=== PATIENT | female | born 1955 | race Caucasian/White ===

== ENCOUNTER → 2024-05-15 | Outpatient (CLI) | payer MEDICARE, BC, SELFPAY ==
[2024-05-15 09:20] LABS: Basophils % (Auto) 1 % (0-2.5); Eosinophils # (Auto) 0.1 Thou/mm3 (0.0-0.5); Eosinophils % (Auto) 2 % (0-10); Hematocrit 41.3 % (36.0-46.0); Hemoglobin 13.9 g/dL (12.0-16.0); Immature Granulocytes % (Auto) 0 % (0-0); Immature Granulocytes Auto 0.01 Thou/mm3 (0.00-0.00); Lymphocytes % (Auto) 30 % (10-50); Mean Corpuscular HGB Conc 33.7 g/dl (31.0-37.0); Mean Corpuscular Volume 101 fL (80-100); Monocytes # (Auto) 0.3 Thou/mm3 (0.0-0.8); Monocytes % (Auto) 8 % (0-12); Neutrophils # (Auto) 1.9 Thou/mm3 (1.8-7.7); Neutrophils % (Auto) 58 % (37-80); Nucleated Red Blood Cell % 0 /100 WBC (0); Platelet Count 122 Thou/mm3 (140-440); RDW Standard Deviation 49.1 fL (36.4-46.3); Red Blood Count 4.09 Miln/mm3 (4.00-5.20); White Blood Count 3.3 Thou/mm3 (3.6-11.0)
[2024-05-15 09:29] LABS: Alanine Aminotransferase 10 U/L (10-49); Albumin, Serum 4.6 gm/dL (3.4-4.8); Albumin/Globulin Ratio 1.8 (1.2-2.2); Alkaline Phosphatase 124 U/L (46-116); Anion Gap 9 (7-16); Aspartate Amino Transferase 29 U/L (0-34); BUN/Creatinine Ratio 24 Ratio (12-20); Bilirubin,Total 0.7 mg/dL (0.3-1.2); Blood Urea Nitrogen 19 mg/dL (9-23); Carbon Dioxide 25.5 mMol/L (20.0-31.0); Chloride 106 mMol/L (98-107); Creatinine (Component) 0.8 mg/dL (0.6-1.3); Globulin 2.5 gm/dL (2.3-3.5); Glucose 97 mg/dL (74-106); Osmolality,Calculated 281 (275-295); Potassium 4.7 mMol/L (3.4-5.1); Sodium 140 mMol/L (136-145); Total Protein 7.1 gm/dL (5.7-8.2); eGFR > 60 See Note
[2024-05-18 06:44] LABS: CA 19-9 Antigen* 5 U/mL (<34)
== END | disposition home or self-care (01) ==
LOC: SCTO 08:08
PROVIDERS: PCP Internal Medicine; Referring Provider Internal Medicine Hematology & Oncology; Visit Provider Internal Medicine Hematology & Oncology
DX: D69.6 Thrombocytopenia, unspecified (principal)
CPT/HCPCS: 36415; 80053; 85025; 86301

== ENCOUNTER → 2024-05-16 | Outpatient (CLI) | payer MEDICARE, BC, SELFPAY ==
--- NOTE | 2024-05-16 12:00 | XR_ITS ---
Examination: CT abdomen, without intravenous contrast. CT pelvis, without intravenous contrast. CT abdomen, with intravenous contrast. CT pelvis, with intravenous contrast. 2-D sagittal coronal reconstructions. Date and time of exam:May 16, 2024 1309 hours Comparison November 09, 2023 INDICATIONS: Diagnosis thrombocytopenia, generalized abdominal pain beginning 2 years ago, subcentimeter abdominal lymphadenopathy on CT abdomen and pelvis November 09, 2023 CTDI: vol (mGy) 24.9 DLP: (mGycm) 956 Technique: Multiple 3.0 axial images of the abdomen and pelvis without intravenous contrast, 3.0 mm slice thickness. Multiple 3.0 postcontrast images abdomen and pelvis also obtained, post intravenous injection 60 cc [id number] 2-D sagittal and coronal reconstructions. Low dose protocols were performed. One or more of the following dose reduction techniques were used; automated exposure control, adjustment of the mA and/or KV according to patient size, use of iterative reconstruction technique. Findings: Multiple liver cysts No gallstones Spleen not enlarged No pancreatic mass No hydronephrosis renal or ureteral calculi Stable subcentimeter periaortic pericaval lymph nodes No bowel obstruction No pericecal inflammatory change No diverticulitis No pelvic mass Advanced degenerative disc disease L5-S1 IMPRESSION: Stable subcentimeter periaortic pericaval lymph nodes
== END | disposition home or self-care (01) ==
PROVIDERS: Referring Provider Internal Medicine Hematology & Oncology; Visit Provider Internal Medicine Hematology & Oncology
DX: D69.6 Thrombocytopenia, unspecified (principal)
CPT/HCPCS: 74178; A4649; Q9967

== ENCOUNTER 2024-05-25 09:59 | Outpatient (RCR) | payer MEDICARE, BC, SELFPAY | END 2024-05-26 23:59 | disposition home or self-care (01) | LOC: SCTC 09:59 | PROVIDERS: PCP Internal Medicine; Referring Provider Internal Medicine; Visit Provider Nurse Practitioner Family | DX: D69.6 Thrombocytopenia, unspecified (principal) | CPT/HCPCS: 99212; G0463 ==

== ENCOUNTER 2024-06-27 10:00 | Outpatient (RCR) | payer MEDICARE, BC, SELFPAY | END 2024-07-24 23:59 | disposition home or self-care (01) | LOC: SCTC 10:00 | PROVIDERS: PCP Internal Medicine; Referring Provider Internal Medicine; Visit Provider Nurse Practitioner Family | DX: D69.6 Thrombocytopenia, unspecified (principal); K51.90 Ulcerative colitis, unspecified, without complications; Z90.410 Acquired total absence of pancreas | CPT/HCPCS: 99424; 99425 ==

== ENCOUNTER 2024-08-01 10:10 | Outpatient (RCR) | payer MEDICARE, BC, SELFPAY | END 2024-08-23 23:59 | disposition home or self-care (01) | LOC: SCTC 10:10 | PROVIDERS: PCP Internal Medicine; Referring Provider Internal Medicine; Visit Provider Nurse Practitioner Family | DX: D69.6 Thrombocytopenia, unspecified (principal) | CPT/HCPCS: 99211; G0463 ==

== ENCOUNTER → 2024-09-08 | Outpatient (CLI) | payer MEDICARE, BC, SELFPAY ==
[2024-09-08 11:09] LABS: Basophils % (Auto) 1 % (0-2.5); Eosinophils # (Auto) 0.1 Thou/mm3 (0.0-0.5); Eosinophils % (Auto) 1 % (0-10); Hematocrit 39.9 % (36.0-46.0); Hemoglobin 13.3 g/dL (12.0-16.0); Immature Granulocytes % (Auto) 0 % (0-0); Immature Granulocytes Auto 0.01 Thou/mm3 (0.00-0.00); Lymphocytes # (Auto) 0.9 Thou/mm3 (1.0-4.8); Lymphocytes % (Auto) 19 % (10-50); Mean Corpuscular HGB Conc 33.3 g/dl (31.0-37.0); Mean Corpuscular Volume 102 fL (80-100); Monocytes # (Auto) 0.3 Thou/mm3 (0.0-0.8); Monocytes % (Auto) 7 % (0-12); Neutrophils # (Auto) 3.4 Thou/mm3 (1.8-7.7); Neutrophils % (Auto) 72 % (37-80); Nucleated Red Blood Cell % 0 /100 WBC (0); Platelet Count 132 Thou/mm3 (140-440); RDW Standard Deviation 48.8 fL (36.4-46.3); Red Blood Count 3.91 Miln/mm3 (4.00-5.20); White Blood Count 4.8 Thou/mm3 (3.6-11.0)
[2024-09-08 11:35] LABS: Alanine Aminotransferase < 7 U/L (10-49); Albumin, Serum 4.3 gm/dL (3.4-4.8); Albumin/Globulin Ratio 1.8 (1.2-2.2); Alkaline Phosphatase 126 U/L (46-116); Anion Gap 11 (7-16); Aspartate Amino Transferase 20 U/L (0-34); BUN/Creatinine Ratio 21 Ratio (12-20); Bilirubin,Total 0.7 mg/dL (0.3-1.2); Blood Urea Nitrogen 19 mg/dL (9-23); Carbon Dioxide 25.4 mMol/L (20.0-31.0); Chloride 108 mMol/L (98-107); Creatinine (Component) 0.9 mg/dL (0.6-1.3); Globulin 2.4 gm/dL (2.3-3.5); Glucose 99 mg/dL (74-106); Osmolality,Calculated 289 (275-295); Potassium 3.9 mMol/L (3.4-5.1); Sodium 144 mMol/L (136-145); Total Protein 6.7 gm/dL (5.7-8.2); eGFR > 60 See Note
== END | disposition home or self-care (01) ==
LOC: SCTO 09:57
PROVIDERS: PCP Internal Medicine; Referring Provider Nurse Practitioner Family; Visit Provider Nurse Practitioner Family
DX: D69.6 Thrombocytopenia, unspecified (principal)
CPT/HCPCS: 36415; 80053; 85025

== ENCOUNTER 2024-09-14 11:31 | Outpatient (RCR) | payer MEDICARE, BC, SELFPAY ==
--- NOTE | 2024-09-20 01:15 | CTCFLWUP_ITS ---
Patient: RIVAS GREEN : 1955 Page 7 of 7 FOLLOW UP NOTE DATE OF SERVICE: 09/14/2024 NAME: RIVAS GREEN ACCOUNT: [id number] : 1955 AGE: 69 INTERVAL HISTORY: Subjective: Chief Complaint Routine follow-up for asymptomatic mild thrombocytopenia, monitoring of pancreatic and liver growths, experiencing Charley horses, breathing issues due to deviated septum, hot flashes with sulfur smell, past due for mammogram History of Present Illness Peter Solis, a patient with a history of Crohn's disease, pancreatectomy, and multiple medical conditions, presents for follow-up of mild thrombocytopenia and ongoing monitoring of various health issues. The patient reports stable mild thrombocytopenia, likely attributed to 6- mercaptopurine, with platelets currently at 132. She is actively trying to increase her platelet count through dietary modifications. A small growth in her pancreas is being monitored, with the last scan in April showing stability. Additionally, a growth in her liver is being followed at [facility]. Peter is experiencing Charley horses, which she suspects may be due to low calcium. To address this, she is taking magnesium and drinking 80 ounces of water daily. She also reports the presence of goiters and breathing issues related to a deviated septum. The patient mentions ongoing management of kidney stones, which were previously treated in [place]. Regarding women's health, Peter is taking estradiol for hot flashes but notes associated symptoms of a sulfur smell and the need for frequent showers. She is also using evening primrose and black cohosh. The patient is past due for a mammogram and expresses a desire to have it done at the current facility due to her history of fibrocystic breasts, which typically require follow-up imaging. Peter reports a significant family history of breast cancer, metastatic cancer, dementia, Alzheimer's, and Parkinson's disease. She also mentions having extreme food allergies, though specific details are not provided. Medications and Supplements - 6-mercaptopurine - Likely causing mild thrombocytopenia - Estradiol - For hot flashes - Side effects: sulfur smell, frequent showers - Magnesium - Evening primrose - Black cohosh Review of Systems General: Positive for hot flashes. HEENT: Positive for breathing issues due to deviated septum. Musculoskeletal: Positive for Charley horses. Endocrine: Positive for goiters. Other: Positive for sulfur smell. Objective: Physical Examination HEENT: Goiters present. Deviated septum noted. Laboratory, Imaging, and Diagnostic Test Results - Platelets: 132 (stable, mildly low) - Pancreas scan (April 2024): Stable small growth in pancreas - Liver imaging: Growth in liver being monitored at [facility] (date not specified) ONCOLOGY HISTORY: DIAGNOSIS: Asymptomatic mild thrombocytopenia most likely secondary to 6-mercaptopurine. 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 Green. DATE OF DIAGNOSIS: STAGE/TNM: TREATMENT HISTORY: Care?Plan Start?Date Cycle Day Intent HISTORY OF PRESENT ILLNESS: Rivas Green is a 69-year-old ENG speaking female referred to hematology clinic for mild thrombocytopenia. 05/18/2022: Platelet count 140,000 12/30/2022: Platelet count 121,000. 01/29/2023: Platelet count 160,000. 05/13/2023: Platelet count 129,000. 10/11/2023: Platelet count 127,000. 11/08/2023: Platelet count 123,000, WBC 5.4, ANC 3.6, hemoglobin 12.7, MCV 100,. 11/09/2023:: CT scan of the abdomen and pelvis with and without contrast OTHER MEDICAL HISTORY/CONDITIONS: PANCRATIC?CA???CROHNS BLADDER SUPPENTION HYSTRECTOMY PANCRATIC PARATHYROID SURG ANXIETY DEPRESSION FAMILY HISTORY: Sibling: BREAST SISTER / BRAIN SISTER DEC SOCIAL HISTORY: Occupational?History:?[employer] EX[employer]ER/ RETIRED Education?Level:?Attended College, did not graduate Marital?Status:? 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 balsalazide disodium - 750 mg Three times a day 2. Creon 10 - 36,000 As directed 3. estradioL - 0.075 mg (7 Day) 1 As directed 4. gabapentin - 240 mg Three times a day 5. hydroquinone - 4 As directed 6. mercaptopurine - 60 mg Daily 7. omeprazole - 20 mg 1 Daily 8. potassium chloride - 600 As directed Medications Last Reconciled by Ellen Conway MA on 09/14/2024 ALLERGIES: WATERMELON; STRAWBERRY; CANTALOPE; CANTALOPE; DAIRY; CORN; ciprofloxacin lactate REVIEW OF SYSTEMS: A complete 14-point review of systems was performed and is negative except as noted in interval history. PHYSICAL EXAMINATION: VITAL SIGNS: Temperature?98.2, B/P?113/70, Oxygen?Saturation?95% Weight?160?lbs PAIN: 3 - Between mild and moderate pain ECOG Performance Status: 1 - Symptomatic; ambulatory; restricted in strenuous activity GENERAL APPEARANCE: Appears well, in no apparent distress, appropriately interactive. HEENT: Normocephalic, no temporal wasting, normal conjunctiva, normal hearing, lips without lesions, neck normal range of motion. CARDIOVASCULAR: Normal heart sounds PULMONARY: Normal respiratory effort, no respiratory distress or use of accessory muscles, speaking in full sentences, no tachypnea. EXTREMITIES: No cyanosis. SKIN: Normal skin appearance. NEUROLOGIC: Alert and oriented x4. PSHYCHIATRIC: Appropriate affect, mood normal, behavior normal, intact thought and speech. LABORATORY DATA: I have personally reviewed and interpreted each of the patient?s relevant lab tests, abnormal findings are below: Date 05/15/24 09/08/24 ??WHITE?BLOOD?COUNT?(Thou/mm3) 3.3?L 4.8 ??RED?BLOOD?COUNT?(Miln/mm3) 4.09 3.91?L ??HEMOGLOBIN?(gm/dl) 13.9 13.3 ??HEMATOCRIT?(%) 41.3 39.9 ??PLATELET?COUNT?(Thou/mm3) 122?L 132?L ??NEUTROPHILS?%,?AUTO?(%) 58 72 ??LYMPH?%,?AUTO?(%) 30 19 ??NEUTROPHILS,?AUTO?(Thou/mm3) 1.9 3.4 ??GLUCOSE,RANDOM?(mg/dL) 97 99 ??BLOOD?UREA?NITROGEN?(mg/dL) 19 19 ??CREATININE?(mg/dL) 0.80 0.90 ??SODIUM?(mmol/L) 140 144 ??POTASSIUM?(mmol/L) 4.7 3.9 ??CHLORIDE?(mmol/L) 106 108?H ??CrCl?(CandG)?(ml/min) 74.52 68.01 ??AST/SGOT?(Unit/L) 29 20 ??ALT/SGPT?(Unit/L) 10 <?7?L ??ALKALINE?PHOSPHATASE?(Unit/L) 124?H 126?H ??BILIRUBIN,?TOTAL?(mg/dL) 0.7 0.7 ??PROTEIN?TOTAL?(gm/dl) 7.1 6.7 ??ALBUMIN,?SERUM?(gm/dl) 4.6 4.3 ??GLOBULIN?(gm/dl) 2.5 2.4 ??ALBUMIN/GLOBULIN?RATIO 1.8 1.8 ??CALCIUM,?SERUM?(mg/dL) 10.0 9.0 ??CALCIUM?SERUM?(CORRECTED)?(mg/dL) 10.0 9.0 ASSESSMENT/PLAN: Peter Solis, female patient with history of Crohn's disease, partial pancreatectomy, and mild thrombocytopenia, presenting for follow-up of multiple chronic conditions. Mild Thrombocytopenia Assessment: Patient has asymptomatic mild thrombocytopenia, likely secondary to 6-mercaptopurine therapy. Platelets are currently stable at 132. The patient reports eating foods to support platelet levels. No spleen-related issues have been noted. Plan: - Continue monitoring platelet levels - Maintain current 6-mercaptopurine therapy (dose not specified) - Encourage dietary support for platelet levels Asymptomatic mild thrombocytopenia most likely secondary to 6-mercaptopurine. Ulcerative colitis currently on 6-MP. 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 Green. CT scan of the abdomen and pelvis did not show any splenomegaly, and shows stable subcentimeter periaortic pericaval lymph nodes, 05/16/2024. Labs from 05/15/2024 show platelets 122,000, hemoglobin 13.9. Patient denies any bleeding concerns, denies fever. No specific intervention required for asymptomatic thrombocytopenia. Crohn's Disease Assessment: Patient has a confirmed diagnosis of Crohn's disease, not ulcerative colitis as previously thought. Regular colonoscopies are performed at [facility] for monitoring. Plan: - Continue current management (specific medications not mentioned) - Follow up with [facility] for regular colonoscopies Post-Partial Pancreatectomy Assessment: Patient underwent pancreatectomy 4 years ago, with 65% of the pancreas removed due to high-grade pre-cancerous nodules. A small growth in the remaining pancreas is being monitored. The last scan in April showed stability. Plan: - Continue monitoring of pancreatic growth - Follow up on imaging studies as scheduled Hepatic Lesion Assessment: Patient has a growth in the liver that is being monitored at [facility]. No further details provided about the nature or size of the growth. Plan: - Continue follow-up at [facility] for liver growth monitoring Muscle Cramps Assessment: Patient reports experiencing Charley horses, possibly due to low calcium levels. Currently taking magnesium and drinking 80 ounces of water daily to manage symptoms. Plan: - Continue magnesium supplementation (dose not specified) - Maintain hydration with 80 ounces of water daily - Consider calcium level assessment if not recently performed Goiter Assessment: Patient reports the presence of goiters. No further details provided about size, symptoms, or previous evaluations. Plan: - Evaluate thyroid function if not recently performed - Consider referral to endocrinology for further management Deviated Septum Assessment: Patient reports breathing issues due to a deviated septum. No information provided about severity or previous treatments. Plan: - Consider referral to otolaryngology for evaluation and management options History of Nephrolithiasis Assessment: Patient reports history of kidney stones treated in [place]. No information provided about recurrence or current symptoms. Plan: - Encourage adequate hydration to prevent recurrence - Consider urinalysis and metabolic evaluation if not recently performed Menopausal Symptoms Assessment: Patient is experiencing hot flashes and is currently taking estradiol. Reports sulfur smell and frequent showers as side effects. Also using evening primrose and black cohosh as complementary therapies. Plan: - Continue estradiol (dose and route not specified) - Monitor for side effects and efficacy of current regimen - Continue evening primrose and black cohosh as tolerated Breast Health Screening Assessment: Patient is past due for mammogram. Reports fibrocystic breasts requiring regular follow-ups. Family history of breast cancer and metastatic cancer increases risk profile. Plan: - Schedule mammogram and ultrasound at current facility due to patient preference and history of fibrocystic breasts - Ensure annual breast cancer screening is maintained Multiple Food Allergies Assessment: Patient reports extreme food allergies. No specific allergens or reactions mentioned. Plan: - Review and document specific food allergies - Consider referral to dermatology specialist if not previously evaluated CBC CMP prior to next follow-up ORDERS: Order # Description RETURN TO CLINIC: BILLING AND COMPLIANCE: I reviewed external records from providers outside my specialty as summarized above. I spent a total of 50 minutes on this patient?s care on the day of their visit excluding time spent related to any billed procedures. This time includes time spent with the patient as well as time spent documenting in the medical record, reviewing patients records and tests, obtaining history, placing orders, communicating with other healthcare professionals, counseling the patient, family or caregiver, and/or care coordination for the diagnoses above. Electronically Signed by: {Object.Sanct_ID*[email or web address]@M}, {Object.Sanct_ID*PnP.Suffix@U} D: {Object.Sanct_Date} T: {Object.Sanct_Time} CC: PCP: Bryant Wolf Referring: Bryant Wolf This document was completed utilizing speech recognition software. Grammatical errors, random word insertions, pronoun errors, and incomplete sentences are an occasional consequence of this system due to software limitations, ambient noise, and hardware issues. Any formal questions or concerns about the content, text or information contained within the body of this dictation should be directly addressed to the provider for clarification.
== END 2024-09-23 23:59 | disposition home or self-care (01) ==
LOC: SCTC 11:31
PROVIDERS: PCP Internal Medicine; Referring Provider Internal Medicine; Visit Provider Internal Medicine Hematology & Oncology
DX: D69.6 Thrombocytopenia, unspecified (principal); Z80.3 Family history of malignant neoplasm of breast; K50.90 Crohn's disease, unspecified, without complications; K76.89 Other specified diseases of liver; R25.2 Cramp and spasm; E04.9 Nontoxic goiter, unspecified; Z87.442 Personal history of urinary calculi; N95.1 Menopausal and female climacteric states; R23.2 Flushing; Z91.018 Allergy to other foods
CPT/HCPCS: 99212; G0463

== ENCOUNTER 2024-10-09 10:02 | Outpatient (RCR) | payer MEDICARE, BC, SELFPAY | END 2024-10-23 23:59 | disposition home or self-care (01) | LOC: SCTC 10:02 | PROVIDERS: PCP Internal Medicine; Referring Provider Internal Medicine; Visit Provider Internal Medicine Hematology & Oncology | DX: D69.6 Thrombocytopenia, unspecified (principal); K50.90 Crohn's disease, unspecified, without complications; Z90.411 Acquired partial absence of pancreas; K76.89 Other specified diseases of liver; M62.831 Muscle spasm of calf; E04.9 Nontoxic goiter, unspecified; J34.2 Deviated nasal septum; Z87.442 Personal history of urinary calculi; N95.1 Menopausal and female climacteric states; R23.2 Flushing | CPT/HCPCS: 99211; G0463 ==

== ENCOUNTER → 2024-10-13 | Outpatient (CLI) | payer MEDICARE, BC, SELFPAY ==
--- NOTE | 2024-10-13 08:45 | XR_ITS ---
Examination: Screening digital mammography, bilateral Computer aided detection 3-D breast Tomosynthesis, bilateral Date and time of exam: October 13, 2024 0845 hours Compared to mammograms dating to December 01, 2004 Indication: Screening Technique: Nonmagnified MLO, CC views of the breasts to been obtained, reconstructed from 3-D Tomosynthesis images. R2 computer aided detection program utilized for evaluation of suspicious masses and/or abnormal calcifications. 3-D Tomosynthesis images obtained. Findings: The breasts are heterogeneously dense, which may obscure small masses Bilateral skin lesions No interval suspicious masses Impression: BI-RADS category II: Benign Findings. Recommend 1 year follow-up mammogram.
== END | disposition home or self-care (01) ==
PROVIDERS: PCP Internal Medicine; Referring Provider Internal Medicine Hematology & Oncology; Visit Provider Internal Medicine Hematology & Oncology
DX: Z12.31 Encounter for screening mammogram for malignant neoplasm of breast (principal); R92.323 Mammographic fibroglandular density, bilateral breasts
CPT/HCPCS: 77063; 77067

== ENCOUNTER → 2025-01-30 | Outpatient (CLI) | payer MEDICARE, BC, SELFPAY ==
--- NOTE | 2025-01-30 | XR_ITS ---
Examination: Knee, right, 3 views Technique: Knee AP, lateral, oblique 3 views Date and time of exam: January 30, 2025, 1306 hours INDICATIONS: Onset right knee pain beginning 2 months ago. FINDINGS: Moderate osteopenia. Mild tricompartment osteoarthritis. No fracture. Small knee effusion IMPRESSION: Mild tricompartment osteoarthritis
== END | disposition home or self-care (01) ==
PROVIDERS: PCP Internal Medicine; Referring Provider Internal Medicine; Visit Provider Internal Medicine
DX: M17.11 Unilateral primary osteoarthritis, right knee (principal)
CPT/HCPCS: 73562